=== PATIENT | male | born 1965 | race African-American/Black ===

== ENCOUNTER 2016-04-02 06:51 | Day surgery (SDC) | payer OTHER ==
[~2016-04-02] VITALS: Ht 190.5 cm; Wt 131.5 kg
[~2016-04-02 06:51] MED LIST: ALLEGRA ALLERG180 MG PO; ERYTHROMYCIN O3.5 GM LEFT EYE; NAPROXEN500 MG PO; NORCO 5/3251 TABLET PO; TYLENOL EXTRA500 MG PO; ZANTAC150 MG PO
[2016-04-02 07:31] VITALS: BP 141/98
[2016-04-02] MEDS ORDERED: DILAUDID2 MG PO (09:59)
[2016-04-02 10:40] VITALS: BP 112/78
[2016-04-02 11:45] VITALS: BP 125/81
[2016-04-02 13:46] VITALS: BP 146/83
[2016-04-02 15:18] VITALS: BP 133/83
== END 2016-04-02 15:39 | disposition home or self-care (01) ==
LOC: SDC
DX: K43.9 Ventral hernia without obstruction or gangrene (principal); E78.5 Hyperlipidemia, unspecified; G47.30 Sleep apnea, unspecified; E55.9 Vitamin D deficiency, unspecified
CPT/HCPCS: C1781; J0131; J0330; J0690; J1100; J1885; J2250; J2405; J2710; J3010

== ENCOUNTER 2017-02-22 12:37 | Emergency (ER) | payer OTHER ==
[~2017-02-22] VITALS: Ht 190.5 cm; Wt 132.0 kg
[~2017-02-22 12:37] MED LIST changes: +DILAUDID2 MG PO
[2017-02-22] MEDS ORDERED: ULTRAM50 MG PO (13:51)
[2017-02-22] MEDS ORDERED: VALIUM5 MG PO (13:51)
[2017-02-22 14:20] VITALS: BP 130/84
== END 2017-02-22 14:19 | disposition home or self-care (01) ==
LOC: EME 12:37
DX: M54.9 Dorsalgia, unspecified (principal); F17.200 Nicotine dependence, unspecified, uncomplicated; Z88.5 Allergy status to narcotic agent
CPT/HCPCS: 99281; 99284; J1100; J3010

== ENCOUNTER 2017-04-07 08:16 | Day surgery (SDC) | payer OTHER ==
[~2017-04-07] VITALS: Ht 190.5 cm; Wt 134.7 kg
[~2017-04-07 08:16] MED LIST changes: +PRAVACHOL40 MG PO; +ULTRAM50 MG PO; +VALIUM5 MG PO
[2017-04-07 08:34] VITALS: BP 160/92
[2017-04-07 13:50] VITALS: BP 117/73
[2017-04-07 14:49] VITALS: BP 113/64
[2017-04-07 15:33] VITALS: BP 126/70
== END 2017-04-07 15:44 | disposition home or self-care (01) ==
LOC: SDC 08:16
DX: M51.17 Intervertebral disc disorders with radiculopathy, lumbosacral region (principal); G47.30 Sleep apnea, unspecified; E78.5 Hyperlipidemia, unspecified; F41.9 Anxiety disorder, unspecified; M19.90 Unspecified osteoarthritis, unspecified site; F17.200 Nicotine dependence, unspecified, uncomplicated; Z82.61 Family history of arthritis; Z82.49 Family history of ischemic heart disease and other diseases of the circulatory system
CPT/HCPCS: 72020; 76000; J0330; J0690; J1100; J1170; J1885; J2250; J2405; J2765; J3010

== ENCOUNTER 2017-08-22 | Emergency (ER) | payer SELFPAY ==
[~2017-08-22] VITALS: Ht 190.5 cm; Wt 127.5 kg
[2017-08-22 00:49] LABS: BASOPHIL (%) 0.6 % (0-1); BASOPHIL COUNT 0.1 K/uL (0-0.1); EOSINOPHIL COUNT 0.5 K/uL (0-0.3); HEMATOCRIT 49.2 % (38.0-50.0); HEMOGLOBIN 17.1 G/DL (12.5-16.6); IMMATURE GRANULOCYTE (%) 0.5 % (0.0-0.7); LYMPHOCYTE (%) 19.5 % (15-42); LYMPHOCYTE COUNT 2.4 K/uL (1.0-2.8); MCHC 34.8 G/DL (30.0-36.0); MONOCYTE (%) 10.7 % (3-12); MONOCYTE COUNT 1.3 K/uL (0-0.8); NEUTROPHIL (%) 64.7 % (45-76); PLATELET COUNT 237 K/uL (156-360); RBC DIS.WIDTH-CV 12.4 % (11.8-14.6); RBC DIS.WIDTH-SD 41.9 % (39-53); RED BLOOD COUNT 5.35 M/uL (4.00-5.50); WHITE BLOOD COUNT 12.3 K/uL (4.1-10.2)
[2017-08-22 01:07] LABS: D-DIMER ELISA < 150.00 ng/mLDDU (<230)
[2017-08-22 01:09] LABS: CHLORIDE 103 mEq/L (99-109); POTASSIUM 3.8 mEq/L (3.7-5.4); SODIUM 139 mEq/L (136-147)
[2017-08-22 01:11] LABS: GLUCOSE 136 mg/dL (70-99)
[2017-08-22 01:15] LABS: CREATININE 1.2 mg/dL (0.6-1.3); GFR ESTIMATE (CALCULATED) > 59 mL/min/ (58.99-99999)
[2017-08-22 01:16] LABS: UREA NITROGEN (BUN) 14 mg/dL (9-23)
[2017-08-22 01:17] LABS: URIC ACID 5.5 mg/dL (3.1-9.2)
[2017-08-22 01:49] LABS: ERTH.SED.RATE 73 MM/HR (0-20)
[2017-08-22] MEDS ORDERED: NORCO 10/3251 TABLET PO (02:15)
[2017-08-22] MEDS ORDERED: BACTRIM,SEPT1 TABLET PO (02:16)
[2017-08-22] MEDS ORDERED: INDOCIN50 MG PO (02:16)
[2017-08-22 03:25] VITALS: BP 131/80
[2017-08-22 10:00] LABS: LYME DISEASE SEROLOGY SCREEN NEGATIVE (NEGATIVE)
[2017-08-22] MEDS ORDERED: SAVELLA1 EACH PO (21:43)
[2017-08-22] MEDS ORDERED: PROAIR HFA8.5 GM IH (21:44)
[2017-08-22] MEDS ORDERED: KEFLEX250 MG PO (21:44)
== END 2017-08-22 03:26 | disposition home or self-care (01) ==
LOC: EME
PROVIDERS: Physician Assistant
DX: M10.9 Gout, unspecified (principal); R00.0 Tachycardia, unspecified; E78.5 Hyperlipidemia, unspecified; F17.200 Nicotine dependence, unspecified, uncomplicated; Z88.5 Allergy status to narcotic agent
CPT/HCPCS: 73630; 80048; 84550; 85025; 85379; 85651; 86618; 93005; 99281; 99284

== ENCOUNTER 2017-08-22 20:04 | Inpatient (IN) | payer SELFPAY ==
[~2017-08-22] VITALS: Ht 190.5 cm; Wt 129.8 kg
[~2017-08-22 20:04] MED LIST changes: +BACTRIM,SEPT1 TABLET PO; +INDOCIN50 MG PO; +NORCO 10/3251 TABLET PO
[2017-08-22 21:11] LABS: BASOPHIL (%) 0.6 % (0-1); BASOPHIL COUNT 0.1 K/uL (0-0.1); EOSINOPHIL (%) 4.3 % (0-5); EOSINOPHIL COUNT 0.4 K/uL (0-0.3); HEMATOCRIT 47.1 % (38.0-50.0); HEMOGLOBIN 16.7 G/DL (12.5-16.6); IMMATURE GRANULOCYTE (%) 0.4 % (0.0-0.7); LYMPHOCYTE COUNT 2.2 K/uL (1.0-2.8); MCH 32.2 PG (29.0-34.0); MCHC 35.5 G/DL (30.0-36.0); MCV 90.8 FL (86-99); MONOCYTE (%) 11.2 % (3-12); MONOCYTE COUNT 1.1 K/uL (0-0.8); NEUTROPHIL (%) 61.5 % (45-76); NEUTROPHIL COUNT 6.1 K/uL (1.8-6.4); PLATELET COUNT 255 K/uL (156-360); RBC DIS.WIDTH-CV 12.2 % (11.8-14.6); RBC DIS.WIDTH-SD 40.7 % (39-53); RED BLOOD COUNT 5.19 M/uL (4.00-5.50); WHITE BLOOD COUNT 9.9 K/uL (4.1-10.2)
[2017-08-22 21:23] LABS: CHLORIDE 104 mEq/L (99-109); POTASSIUM 3.8 mEq/L (3.7-5.4); SODIUM 140 mEq/L (136-147)
[2017-08-22 21:25] LABS: GLUCOSE 139 mg/dL (70-99)
[2017-08-22 21:29] LABS: CREATININE 1.2 mg/dL (0.6-1.3); GFR ESTIMATE (CALCULATED) > 59 mL/min/ (58.99-99999)
[2017-08-22 21:30] LABS: UREA NITROGEN (BUN) 17 mg/dL (9-23)
[2017-08-22 21:31] LABS: URIC ACID 5.2 mg/dL (3.1-9.2)
[2017-08-22] MEDS ORDERED: SAVELLA1 EACH PO (21:43)
[2017-08-22] MEDS ORDERED: KEFLEX250 MG PO (21:44)
[2017-08-22] MEDS ORDERED: PROAIR HFA8.5 GM IH (21:44)
[2017-08-22 22:43] VITALS: BP 127/70
[2017-08-23 07:35] VITALS: BP 125/70
[2017-08-23 15:00] VITALS: BP 130/64
[2017-08-23 22:30] VITALS: BP 135/70
[2017-08-24 07:13] VITALS: BP 130/75
[2017-08-24 07:14] LABS: CHLORIDE 108 MEQ/L (99-109); CREATININE 0.9 MG/DL (0.6-1.3); GFR ESTIMATE (CALCULATED) > 59 mL/min/ (58.99-99999); POTASSIUM 4.4 MEQ/L (3.7-5.4); SODIUM 140 MEQ/L (136-147); UREA NITROGEN (BUN) 11 mg/dL (9-23)
[2017-08-24 07:40] LABS: GLUCOSE 220 mg/dL (70-99)
[2017-08-24 09:48] LABS: HEMOGLOBIN A1c (GLYCOHEMOGLOB) 5.9 % (Below 5.7)
[2017-08-24 11:04] LABS: HEMATOCRIT 48.4 % (38.0-50.0); HEMOGLOBIN 16.5 G/DL (12.5-16.6); MCH 31.6 PG (29.0-34.0); MCHC 34.1 G/DL (30.0-36.0); MCV 92.7 FL (86-99); PLATELET COUNT 271 K/uL (156-360); RBC DIS.WIDTH-CV 12.5 % (11.8-14.6); RBC DIS.WIDTH-SD 42.8 % (39-53); RED BLOOD COUNT 5.22 M/uL (4.00-5.50); WHITE BLOOD COUNT 10.5 K/uL (4.1-10.2)
[2017-08-24] MEDS ORDERED: DOXYCYCLINE HY100 MG PO (12:10)
== END 2017-08-24 15:44 | disposition home or self-care (01) | DRG 603 ==
LOC: EME 20:04 → 5EAST 21:39 → EDOF 21:39 → ENRESERV 21:40 → 5EAST 22:33
PROVIDERS: Emergency Medicine; Family Medicine; Hospitalist
DX: L03.116 Cellulitis of left lower limb (principal); M10.9 Gout, unspecified; R73.03 Prediabetes; E78.5 Hyperlipidemia, unspecified; K21.9 Gastro-esophageal reflux disease without esophagitis; F17.200 Nicotine dependence, unspecified, uncomplicated; E55.9 Vitamin D deficiency, unspecified
CPT/HCPCS: 73630; 80048; 80048 91; 80202; 83036; 84550; 85025; 85025 91; 85027; 85379; 85651; 86618; 93005; 94640; 99202; 99281; 99284; 99285; J0690; J1100; J1650; J1885; J3370